=== PATIENT | male | born 1995 | race Caucasian/White ===

== ENCOUNTER 2024-10-05 00:09 | Day surgery (SDC) | payer BC, SELFPAY ==
[2024-09-28 08:59] VITALS: BMI 26.5
--- OUTSIDE RECORDS SUMMARY | 2024-10-05 00:11 | XMS_ITS | Clinical Summary ---
Author Organization [facility] Address [address] [place] [id number] Care Team Providers Care Systems Analyst Engineer Name Role Phone Unavailable Primary Care Provider Unavailabl e Allergies No known active allergies Medications pantoprazole EC (PROTONIX) 40 MG tabletIndication s:Acute gastritis, presence of bleeding unspecified, unspecified gastritis type Take one pill by mouth every AM 30 minutes before food 30 tablet 2 04/07/2022 Active sucralfate (CARAFATE) 1 G tabletIndication s:Acute gastritis, presence of bleeding unspecified, unspecified gastritis type Take 1 tablet (1 g total) by mouth 4 (four) times daily before meals and nightly. 120 tablet 04/07/2022 Active Active Problems No known active problems Immunizations Immunization Administration Dates Next Due Dtap (Acel-Immune) 01/31/2001,06/26/1996 Dtp/Hib (Tetramune) 1995,1995,1995 H1N1 Injectable 2009 Influenza 04/10/2009 Hepatitis B Pediatric 1995,1995,10/1994 Hib (Generic) 06/26/1996 MMR (MMRII) 01/31/2001,04/13/1996 Polio IPV (Ipol) 01/31/2001 Polio Opv (Generic) 1995,1995,1995 Tdap (Generic) 01/21/2010 Family History Medical History Relation Comments None Father None Mother Relation Status Comments Father Mother Social History Tobacco Use Types Packs/Day Years Used Date Smoking Tobacco: Never Smokeless Tobacco: Never Alcohol Use Standard Drinks/Week Comments Yes 0 (1 standard drink = 0.6 oz pur e alcohol) 2-4 beers/work PHQ-2 Answer Date Recorded PHQ-2 Score - If the patient scores above 3, please move on to questions 3-9 0 11/10/2021 Sex and Gender Information Value Date Recorded Sex Assigned at Not on file Legal Sex Male 7:54 AM CDT Gender Identity Not on file Sexual Orientation Not on file Last Filed Vital Signs Vital Sign Reading Time Taken Comments Blood Pressure 122/70 04/07/2022 8:35 AM CDT Pulse 60 04/07/2022 8:35 AM CDT Temperature 36.5 C (97.7 F) 04/07/2022 8:35 AM CDT Respiratory Rate 20 04/07/2022 8:35 AM CDT Oxygen Saturation 98% 04/07/2022 8:35 AM CDT Inhaled Oxygen Concentration - - Weight 79.8 kg (176 lb) 04/07/2022 8:35 AM CDT Height 177.8 cm (5' 10 ) 04/07/2022 8:35 AM CDT Body Mass Index 25.25 04/07/2022 8:35 AM CDT Plan of Treatment Health Maintenance Due Date Last Done Comments Hepatitis B Vaccines (4 of 4 - 4-dose series) 1995 1995, 1995, 1995 Annual Physical 1998 Hepatitis C 2013 DTaP, Tdap and Td Vaccines (4 - Td or Tdap) 01/22/2020 01/21/2010, 01/31/2001, 06/26/1996, Additional history exists COVID-19 Vaccine ( season) 2024 04/02/2021 HPV Vaccines Aged Out No longer eligi ble based on patient's age to complete this topic Meningococcal B Vaccine Aged Out No l onger eligible based on patient's age to complete this topic Meningococcal Vaccine Aged Out No jimmy galo eligible based on patient's age to complete this topic Pneumococcal Vaccine: Pediatrics (0 to 5 Years) and At-Risk Patients (6 to 49 Years) Aged Out No longer eligible based on patient's age to complete this topic RSV Immunizations Under 20 Months Aged Out No longer eligible based on patient's age to complete this topic Insurance
[2024-10-05 12:48] VITALS: BP 121/69; PULSE 95; RESP 20; TEMP 36.3; O2SAT 100
[2024-10-05] MEDS: LACTATED RINGERS 1,000 ML 150 ML IV CONT (13:09)
--- NOTE | 2024-10-05 13:32 | WPDANESEPPF ---
Anes - Initial Pre Proc Eval Procedure: Operation Date: 10/05/24 14:15 Proposed Procedures p Colonoscopy - Phil Ochoa MD Date/Time: 10/05/24 13:32 Surgeon: Phil Ochoa MD Pre Op Diagnosis: Ulcerative colitis, Unspecified unspecified Patient Data Age: 29 Gender: M Height: 1.78 m Weight: 84.6 kg Last Vital Signs Temp 36.3 C L 10/05/24 12:48 Pulse 95 10/05/24 12:48 Resp 20 10/05/24 12:48 BP 121/69 10/05/24 12:48 Pulse Ox 100 10/05/24 12:48 O2 Del Method Room Air 10/05/24 12:48 Allergies Allergy/AdvReac Type Severity Reaction Status Date / Time No Known Allergies Allergy Verified 10/05/24 12:47 Home Medications ?Medication ?Instructions ?Recorded ?Confirmed ?Type mesalamine 250 mg capsule,extended 1,000 mg PO DAILY 09/24/24 10/05/24 History release Patient hx anesthesia problems: none Family hx anesthesia problems: none Results Review: All pre-operative results and documents have been reviewed as part of the pre-operative evaluation. [facility] Past Medical History Medical History Hemorrhoids Rectal bleeding Ulcerative colitis Social History Social History Smoking status: Never smoker Living arrangements: with family Spiritual care concerns: No Anes - Eval Final PreProcedure Day of Procedure 10/05/24 13:32 Patient weight: overweight Heart: regular rate and rhythm Lungs: clear to auscultation Airway: Mallampati scale class II Neurological: alert and oriented Last oral intake: 2 hours (8 oz water at 1145) ASA classification: II Emergent: no Anesthetic plan: proceed Anesthesia type and monitoring: general GIVS and standard monitoring Results Review: All pre-operative results and documents have been reviewed as part of the pre-operative evaluation. Informed Consent: The patient's anesthetic plan and its attendant risks and benefits were discussed with the patient/family/POA. Questions were solicited and answers provided to the satisfaction of the patient/family/POA.
--- NOTE | 2024-10-05 13:35 | SUR.PREOP ---
Pt. reports drinking about 8 ounces of water at 12:00pm today. Doctor Gabriela notified and he is okay to proceed if anesthesia is okay to proceed. Will notify anesthesia.
--- NOTE | 2024-10-05 13:50 | PM.IMHP ---
H&P: HPI History of Present Illness Date/Time: 10/05/24 13:50 Chief Complaint: Ulcerative colitis. Narrative: The patient has been diagnosed with ulcerative colitis in 2021. However, he has been experiencing several flares approximately 2 or 3 times a year, requiring prednisone courses. He has been seen in our office and is refer for colonoscopy. A possibility of biologics replacing mesalamine Which he is currently taking, is is being entertained. Review of Systems Review of Systems: All systems reviewed & are unremarkable except as noted in HPI and below PMFSH Past Medical History Medical History Hemorrhoids Rectal bleeding Ulcerative colitis Social History Social History Smoking status: Never smoker Living arrangements: with family Spiritual care concerns: No Meds Home Medications and Allergies Home Medications ?Medication ?Instructions ?Recorded ?Confirmed ?Type mesalamine 250 mg capsule,extended 1,000 mg PO DAILY 09/24/24 10/05/24 History release Allergies Allergy/AdvReac Type Severity Reaction Status Date / Time No Known Allergies Allergy Verified 10/05/24 12:47 Vital Signs Vital Signs - 24 hr 10/05/24 12:48 Temperature 97.3 F L Pulse Rate 95 Respiratory Rate 20 Blood Pressure 121/69 Pulse Oximetry 100 Oxygen Delivery Room Air Exam Const: General: cooperative and healthy appearing Resp: Effort & Inspection: normal respiratory effort and able to speak in complete sentences Auscultation: clear to auscultation bilaterally Cardio: Rate: regular rate Rhythm: regular rhythm GI: Inspection: normal to inspection GI Palp: No No hepatosplenomegaly present Auscultation: normal bowel sounds Rectal Exam: deferred Skin: General skin exam: normal color Psych: Appearance: grossly normal Mental Status: mental status grossly normal Assessment and Plan Assessment and plan (1) Ulcerative colitis: Code(s): K51.90 - Ulcerative colitis, unspecified, without complications Status: Acute Assessment and Plan: The patient is deemed a good candidate for the procedure. Consent signed. Will proceed.
[2024-10-05 14:13] VITALS: BP 109/65; PULSE 79; RESP 21; O2SAT 98
[2024-10-05 14:23] VITALS: BP 111/65; PULSE 78; RESP 22; O2SAT 100
[2024-10-05 14:33] VITALS: BP 111/68; PULSE 71; RESP 19; O2SAT 100
== END 2024-10-05 14:42 | disposition home or self-care (01) ==
PROVIDERS: Visit Provider Internal Medicine Gastroenterology
PROC: 0DJD8ZZ Inspection of Lower Intestinal Tract, Via Natural or Artificial Opening Endoscopic (ICD-10-PCS; CPT 45378; principal; 2024-10-05 14:15)
DX: K51.20 Ulcerative (chronic) proctitis without complications (principal); Z87.19 Personal history of other diseases of the digestive system
CPT/HCPCS: 45380; 88305; J2003; J2704; J7120